=== PATIENT | female | born 1985 | race Caucasian/White ===

== ENCOUNTER 2021-12-03 22:58 | Emergency (ER) | payer SELFPAY ==
[2021-12-03 23:02] VITALS: BP 126/80
[2021-12-03] MEDS ORDERED: diphenhydrAMINE 25 MG CAP PO ONE (23:05)
== END 2021-12-04 04:13 | disposition left against medical advice (07) ==
LOC: ED 22:58
DX: T78.40XA Allergy, unspecified, initial encounter (principal); Z53.21 Procedure and treatment not carried out due to patient leaving prior to being seen by health care provider; X58.XXXA Exposure to other specified factors, initial encounter